=== PATIENT | male | born 1980 | race Caucasian/White ===

== ENCOUNTER 2025-02-22 10:32 | Day surgery (SDC) | payer OTHER ==
[2025-02-22] MEDS ORDERED: Midazolam 1 MG/ML 2 ML SDV ONE ×2 (10:42→12:25)
[2025-02-22] MEDS ORDERED: Propofol 200 MG/20 ML SDV ONE ×2 (10:42→12:55)
[2025-02-22] MEDS ORDERED: fentaNYL 100 MCG/2 ML SDV ONE ×2 (10:43→12:25)
[2025-02-22] MEDS: Lactated Ringers 1,000 ML IV SCH (10:48)
[2025-02-22] MEDS ORDERED: Flumazenil 0.1 MG/ML 5 ML MDV ONE (12:56)
== END 2025-02-22 13:45 | disposition home or self-care (01) ==
LOC: VM.SDS 10:32
PROVIDERS: ATTEND Surgery
DX: D12.6 Benign neoplasm of colon, unspecified (principal); K64.8 Other hemorrhoids
CPT/HCPCS: 00811; J2250; J2704; J3010; J3490; J7120